=== PATIENT | female | born 1995 | race Asian ===

== ENCOUNTER 2024-11-06 07:30 | Emergency (ER) | payer OTHER ==
[~2024-11-06] VITALS: Ht 165.1 cm; Wt 58.0 kg
[2024-11-06 07:48] VITALS: O2SAT 100
[2024-11-06 08:02] VITALS: BP 119/79; PULSE 75; RESP 18; TEMP 36.9; O2SAT 100
[2024-11-06] MEDS: SODIUM CHLORIDE 0.9% 1,000 ML IV ONE (09:22)
[2024-11-06] MEDS: MECLIZINE 25MG TABLET PO ONE (09:22)
[2024-11-06] MEDS: METOCLOPRAMIDE HCL 10MG/2ML VIAL IV ONE (09:22)
[2024-11-06] MEDS ORDERED: MECL-217 PO (10:34)
[2024-11-06] MEDS ORDERED: KETOROLAC 30MG/ML VIAL IV STA (10:46)
== END 2024-11-06 11:00 | disposition home or self-care (01) ==
LOC: ER 07:59
DX: R42 Dizziness and giddiness (principal); R11.0 Nausea
CPT/HCPCS: 96361; 96374; 99283; J8597; J2765; J7030; Z7610

== ENCOUNTER 2025-02-15 13:19 | Emergency (ER) | payer OTHER ==
[~2025-02-15] VITALS: Ht 165.1 cm; Wt 52.0 kg
[~2025-02-15 13:19] MED LIST: MECL-217 PO
[2025-02-15 13:30] VITALS: O2SAT 98
[2025-02-15 14:11] LABS: BASOPHILS % 0.6 % (0.0-2.0); HEMATOCRIT. 36.7 % (36.0-48.0); HEMOGLOBIN. 12.3 g/dL (12.0-16.0); MEAN CORPUSCULAR HEMOGLOBIN 28.9 pg (28.0-32.0); MEAN CORPUSCULAR HGB CONC 33.5 g/dL (31.0-37.0); MEAN CORPUSCULAR VOLUME 86.1 fL (81.0-99.0); MEAN PLATELET VOLUME 10.6 fl (7.4-10.4); NEUTROPHILS % 63.4 % (40.0-76.0); PLATELET 215 x1000/uL (130-400); RED BLOOD CELL COUNT 4.26 mill/uL (4.2-5.4); WHITE BLOOD COUNT 8.5 x1000/uL (4.5-11.0)
[2025-02-15 14:19] LABS: CHLORIDE 109 mEq/L (98-107); POTASSIUM 3.8 mEq/L (3.5-5.1); SODIUM 141 mEq/L (136-145)
[2025-02-15 14:20] LABS: CARBON DIOXIDE 28 mEq/L (21-32)
[2025-02-15 14:25] LABS: CREATININE 0.8 mg/dL (0.6-1.0); GLUCOSE 102 mg/dL (70-105); UREA NITROGEN BLOOD 7 mg/dL (9-23)
[2025-02-15 14:26] LABS: B-HCG QUANTITATIVE 98 mIU/mL (<6)
[2025-02-15 14:36] LABS: CLARITY URINE CLEAR (CLEAR); COLOR URINE YELLOW (YELLOW); GLUCOSE URINE NEGATIVE (NEGATIVE); KETONES URINE NEGATIVE (NEGATIVE); LEUKOCYTE ESTERASE URINE 1+ (NEGATIVE); NITRITE URINE NEGATIVE (NEGATIVE); OCCULT BLOOD URINE 3+ (NEGATIVE); PROTEIN URINE NEGATIVE (NEGATIVE); SPECIFIC GRAVITY URINE 1.022 (1.005-1.030); UROBILINOGEN URINE 0.2 E.U./dL (0.2-1.0)
[2025-02-15 14:51] LABS: SQUAMOUS EPITHELIAL CELL URINE 3+ /lpf (RARE/1+)
[2025-02-15 14:52] LABS: MUCUS URINE TRACE /lpf (< = 2+)
[2025-02-15 14:53] LABS: BACTERIA URINE 1+
[2025-02-15 14:54] LABS: RBC URINE 15-25 /hpf (0-2)
[2025-02-15 16:13] VITALS: BP 108/76; PULSE 77; RESP 16; TEMP 36.8; O2SAT 100
== END 2025-02-15 16:15 | disposition home or self-care (01) ==
LOC: ER 13:19
DX: O46.91 Antepartum hemorrhage, unspecified, first trimester (principal); Z3A.01 Less than 8 weeks gestation of pregnancy
CPT/HCPCS: 36415; 76830; 76856; 80048; 81003; 81025; 84702; 85025; 86850; 86900; 99284